=== PATIENT | male | born 1950 | race Caucasian/White ===

== ENCOUNTER → 2016-07-15 | Outpatient (CLI) | payer OTHER, MEDICARE | LOC: BMCIMAGING 10:45 | PROVIDERS: ATTEND Orthopaedic Surgery | DX: M16.11 Unilateral primary osteoarthritis, right hip (principal) ==

== ENCOUNTER → 2016-08-21 | Outpatient (CLI) | payer OTHER, MEDICARE | LOC: FIMAGING 07:42 | PROVIDERS: ATTEND Orthopaedic Surgery | DX: M75.112 Incomplete rotator cuff tear or rupture of left shoulder, not specified as traumatic (principal); M75.22 Bicipital tendinitis, left shoulder ==